=== PATIENT | male | born 1970 | race Two or more races ===

== ENCOUNTER 2018-08-21 16:15 | Emergency (ER) | payer MEDICAID ==
[~2018-08-21] VITALS: Ht 167.6 cm; Wt 82.6 kg
[2018-08-21 16:18] VITALS: BP 167/106
[2018-08-21] MEDS ORDERED: Norco 5mg/325mg tab ORAL ONE ×2 (17:00→18:00)
[2018-08-21 19:20] VITALS: BP 137/86
--- NOTE | 2018-08-21 19:33 | Emergency Room Report ---
History of Present Illness General Chief Complaint: Pain Source: Patient Present Illness HPI 48-year-old male presents to the emergency department complaining of 8 out of 10 in severity localized right knee//right upper calf pain 2 weeks. Patient reports he has had pain there in the past which has resolved in less than 1 week. Patient states he is concerned because his symptoms have not improved he states he feels as though they're almost getting worse. Patient denies recent travel, prolonged time of being sedentary or history of cancer. Patient denies weakness in the right foot. He states he has been wearing a knee wrap. He reports he is able to ambulate and bear weight however walking does exacerbate his pain. Patient denies appreciable trauma or fall. He denies erythema, warmth , or swelling. Denies numbness tingling or loss of sensation or gross motor movements of the extremities, incontinence of bowel or bladder. Denies CP, Palpitations, LOC, AMS, dizziness, Changes in Vision, weakness or a sudden severe headache. Allergies: Coded Allergies: No Known Allergies (Unverified , 08/21/18) Patient History Past Medical History: see triage record Past Surgical History: none Pertinent Family History: none Reviewed Nursing Documentation: PMH: Agreed; PSxH: Agreed Nursing Documentation-PMH Past Medical History: No Stated History Review of Systems All Other Systems: negative except mentioned in HPI Physical Exam Vital Signs Date Time Temp Pulse Resp B/P (MAP) Pulse Ox O2 Delivery O2 Flow Rate FiO2 08/21/18 16:18 98.2 87 18 167/106 97 Room Air 98.2 Sp02 EP Interpretation: reviewed, normal General Appearance: no apparent distress, alert, GCS 15, non-toxic, moderate distress Head: normocephalic, atraumatic Eyes: bilateral eye normal inspection, bilateral eye PERRL ENT: hearing grossly normal, normal voice Neck: full range of motion Respiratory: lungs clear, normal breath sounds, speaking full sentences Cardiovascular #1: regular rate, rhythm, no edema, normal capillary refill Cardiovascular #2: 2+ dorsalis pedis (R), 2+ dorsalis pedis (L) Musculoskeletal: back normal, gait/station normal - LIMPING, normal range of motion, Gudelia's Sign negative, other - no swelling , erythema or warmth., tender - ttp POSTERIOR RIGHT KNEE, NO PULSATILE MASS POSTERIORLY, NEGATIVE POSTERIOR DRAWER SIGN. NO INCREASED LAXITY. FROM WITH NO CLICKING OR GRINDING. NO OBVIOUS DEFORMITY. NVI DISTALLY Neurologic: alert, oriented x3, responsive, motor strength/tone normal, sensory intact, speech normal, grossly normal Psychiatric: judgement/insight normal Skin: normal color, no rash, warm/dry, well hydrated Medical Decision Making PA Attestation Dr. valencia is my supervising Physician whom patient management has been discussed with. Diagnostic Impression: Primary Impression: Gastrocnemius muscle strain Qualified Codes: S86.111A - Strain of other muscle(s) and tendon(s) of posterior muscle group at lower leg level, right leg, initial encounter Additional Impression: Posterior right knee pain ER Course 48-year-old male presents to the emergency department complaining of 8 out of 10 in severity localized right knee//right upper calf pain 2 weeks. Patient reports he has had pain there in the past which has resolved in less than 1 week. Patient states he is concerned because his symptoms have not improved he states he feels as though they're almost getting worse. Patient denies recent travel, prolonged time of being sedentary or history of cancer. Patient denies weakness in the right foot. He states he has been wearing a knee wrap. He reports he is able to ambulate and bear weight however walking does exacerbate his pain. Patient denies appreciable trauma or fall. He denies erythema, warmth , or swelling. Denies numbness tingling or loss of sensation or gross motor movements of the extremities, incontinence of bowel or bladder. Denies CP, Palpitations, LOC, AMS, dizziness, Changes in Vision, weakness or a sudden severe headache. . Ddx considered but are not limited to Cellulitis, DVT, varicose vein, PAD, Venous insufficiency, popliteal artery aneurysm Vital signs: are WNL, pt. is afebrile H&PE are most consistent with possible gastrocnemius muscle strain. ORDERS: -Venous duplex US: Negative ED INTERVENTIONS: -[place] PO --Patient is provided with crutches and instructed on their use - I reviewed this pt. CURES report and there are no active prescriptions for controlled substances in [place] at this time. Since with this patient that I do not identify an acute emergent condition at this time that he is stable for close outpatient conservative treatment with follow-up to his primary care provider. Discussed with patient that if his symptoms persist his PCP may order additional diagnostic imaging. DISCHARGE: At this time pt. is stable for d/c to home. Will provide printed patient care instructions, and any necessary prescriptions. Care plan and follow up instructions have been discussed with the patient prior to discharge. CT/MRI/US Diagnostic Results CT/MRI/US Diagnostic Results : Imaging Test Ordered: Venous Duples US Right lower extremity. Impression negative for acute DVT. -Per preliminary US/ chemistry technician report Last Vital Signs Date Time Temp Pulse Resp B/P (MAP) Pulse Ox O2 Delivery O2 Flow Rate FiO2 08/21/18 17:51 98.2 08/21/18 16:18 87 18 167/106 97 Room Air Disposition: HOME, SELF-CARE Condition: Stable Scripts Tramadol Hcl* (ULTRAM*) 50 Mg Tablet 50 MG ORAL Q6H PRN for Breakthrough Pain, #5 TAB 0 Refills Prov: Tiffany Kaiser 08/21/18 Ibuprofen* (MOTRIN*) 600 Mg Tablet 600 MG ORAL THREE TIMES A DAY, #30 TAB 0 Refills Prov: Tiffany Kaiser 08/21/18 Referrals: NOT CHOSEN IPA/MD,REFERRING (PCP) Patient Instructions: Medial Head Gastrocnemius Tear With Rehab-SportsMed, Muscle Strain, Kxno-re-Hhup Additional Instructions: Take medications as directed. Follow up with a Primary Care Provider in 3-5 days, even if your symptoms have resolved. --Please review list of primary care clinics, if you do not already have a primary care provider Return sooner to ED if new symptoms occur, or current symptoms become worse. Do not drink alcohol, drive, or operate heavy machinery while taking [ ] as this may cause drowsiness. - Please note that this Emergency Department Report was dictated using [employer] layer technology software, occasionally this can lead to erroneous entry secondary to interpretation by the dictation equipment. Tiffany Kaiser Aug 21, 2018 19:33
[2018-08-21] MEDS ORDERED: IBUPROFEN600 MG ORAL (19:35)
[2018-08-21] MEDS ORDERED: TRAMADOL HCL50 MG ORAL (19:44)
--- NOTE | 2018-08-22 13:32 | Diagnostic Imaging Report ---
Indication: Right lower extremity pain and swelling. Technique: Duplex Doppler imaging performed from the right common femoral vein to the popliteal vein. FINDINGS: Normal compressibility demonstrated from the common femoral vein to the popliteal vein. Respiratory phasicity and good augmentation demonstrated on waveform analysis. There is no evidence of thrombosis. IMPRESSION: No evidence of deep venous thrombosis within the right lower extremity.
== END 2018-08-21 19:10 | disposition home or self-care (01) ==
LOC: EMR 18:14
DX: S86.111A Strain of other muscle(s) and tendon(s) of posterior muscle group at lower leg level, right leg, initial encounter (principal); M25.561 Pain in right knee; X58.XXXA Exposure to other specified factors, initial encounter; Y93.9 Activity, unspecified; Y92.9 Unspecified place or not applicable
CPT/HCPCS: 93971; 99284